=== PATIENT | female | born 1950 | race Hispanic/Latino ===

== ENCOUNTER 2016-12-31 10:14 | Inpatient (IN) | payer OTHER ==
[2016-12-31] MEDS ORDERED: Sodium Chloride 0.9% 1,000 ML IV STA (10:41)
--- NOTE | 2016-12-31 10:50 | ED PDOC ---
HPI: Chest Pain Time Seen by Provider: 12/31/16 10:28 Chief Complaint (Nursing): Palpitations Chief Complaint (Provider): Palpitations History Per: Patient History/Exam Limitations: no limitations Additional Complaint(s): Patient is a 66 year old female, with a past medical history of A fibrillation and hypothyroidism, presenting to the ED for palpitations that has been constant and ongoing since 4 hours ago. Patient denies chest pain, shortness of breath, fever, leg pain, and swelling. Of note, patient takes metoprolol and aspirin. She has no other complaints at this time. PCP: none provided. Past Medical History Reviewed: Historical Data, Nursing Documentation, Vital Signs Vital Signs: Last Vital Signs Temp 98.2 F 12/31/16 14:38 Pulse 52 L 12/31/16 14:38 Resp 17 12/31/16 14:38 BP 130/64 12/31/16 14:38 Pulse Ox 98 12/31/16 14:38 - Medical History PMH: Atrial Fibrillation, Hypothyroidism - Family History Family History: States: Unknown Family Hx - Social History Current smoker - smoking cessation education provided: No Alcohol: None - Home Medications Home Medications: Ambulatory Orders Medication Instructions Recorded Aspirin [Aspirin EC] 325 mg PO HS 12/31/16 Atorvastatin [Lipitor] 5 mg PO WM 12/31/16 Calcium Carbonate [Calcium] 600 mg PO BID 12/31/16 Levothyroxine [Synthroid] 100 mcg PO DAILY 12/31/16 Metoprolol Tartrate [Lopressor] 50 mg PO DAILY 12/31/16 - Allergies Allergies/Adverse Reactions: Allergies Allergy/AdvReac Type Severity Reaction Status Date / Time levothyroxine Allergy RASH Verified 12/31/16 10:36 JOSE Risk Score for UA/NSTEMI - JOSE Risk Score Age > 64: NO 3 or more CAD Risk Factors: NO Known CAD (Stenosis greater than 50%): NO Aspirin use in past 7 days: YES Severe Angina: NO EKG ST changes greater than 0.5mm: NO Positive Cardiac Marker: NO JOSE Score: 1 Risk %: 5% Review of Systems ROS Statement: Except As Marked, All Systems Reviewed And Found Negative Constitutional: Negative for: Fever Cardiovascular: Positive for: Palpitations. Negative for: Chest Pain, Edema Respiratory: Negative for: Shortness of Breath Musculoskeletal: Positive for: Other (-leg pain, swelling) Physical Exam - Reviewed Nursing Documentation Reviewed: Yes Vital Signs Reviewed: Yes - Physical Exam Appears: Positive for: Well, Non-toxic, No Acute Distress Head Exam: Positive for: ATRAUMATIC, NORMAL INSPECTION, NORMOCEPHALIC Skin: Positive for: Normal Color, Warm, Dry Eye Exam: Positive for: Normal appearance Neck: Positive for: Normal, Supple Cardiovascular/Chest: Positive for: Tachycardia, Irregularly Irregular Respiratory: Positive for: Normal Breath Sounds. Negative for: Respiratory Distress Extremity: Positive for: Normal ROM. Negative for: Pedal Edema, Calf Tenderness Neurologic/Psych: Positive for: Alert, Oriented - Laboratory Results Result Diagrams: 12/31/16 11:02 12/31/16 11:02 - ECG ECG: Positive for: Interpreted By Me, Viewed By Me Interpretation Of ECG: First: A Fib at 124 bpm. T wave inversion V3-V6 Second: post cardizem, A Fib at 84 bpm, nonspecific ST changes. O2 Sat by Pulse Oximetry: 97 (RA) Pulse Ox Interpretation: Normal - Radiology X-Ray: Read By Radiologist (Mild biapical pleural thickening.) - Critical Care Total Time (In Min): 35 Documented Critical Care: Time excludes all time spent performint seperately billable procedures Medical Decision Making Medical Decision Making: Initial Impression: A Fib with RVR Initial Plan: * EKG * Labs * CXR * Diltiazem 20 mg IV * NS 1 L, 100 mls/hr * Reevaluation 1335 Repeat EKG: NSR; sinus jakub with rate 53; T-wave inversion V3, V4 13:[address] Cuenca (covering for patient's private Retail Agent Dr. Lim), agrees with admission for repeat troponin. Scribe Attestation: Documented by Fe Maher training under Charito Estrada, acting as a scribe for Justina Trevino MD. Provider Attestation: All medical record entries made by the Scribe were at my direction and personally dictated by me. I have reviewed the chart and agree that the record accurately reflects my personal performance of the history, physical exam, medical decision making, and the department course for this patient. I have also personally directed, reviewed, and agree with the discharge instructions and disposition. Disposition - Clinical Impression Clinical Impression: Atrial fibrillation with RVR - Patient ED Disposition Is Patient to be Admitted: Yes - Disposition Disposition Time: 13:55 Condition: STABLE - Pt Status Changed To: Hospital Disposition Of: Inpatient - Admit Certification Admit to Inpatient:: After my assessment, the patient will require hospitalization for at least two midnights. This is because of the severity of symptoms shown, intensity of services needed, and/or the medical risk in this patient being treated as an outpatient. - POA Present On Arrival: None
[2016-12-31 11:07] LABS: BASO % 0.5 % (0.0-2.0); EOS # 0.1 K/uL (0.0-0.7); EOS % 1.6 % (0.0-4.0); LYMPH # 1.6 K/uL (1.0-4.3); LYMPH % 22.1 % (20.0-40.0); MEAN CELL VOLUME 89.1 fl (81.0-99.0); MEAN CORPUSCULAR HEMOGLOBIN 30.1 pg (27.0-31.0); MEAN CORPUSCULAR HGB CONC 33.8 g/dL (33.0-37.0); MEAN PLATELET VOLUME 10.4 fl (7.2-11.7); MONO # 0.3 K/uL (0.0-0.8); MONO % 4.9 % (0.0-10.0); NEUT % 70.9 % (50.0-75.0); NRBC % 0.1 % (0.0-0.0); RED CELL DISTRIBUTION WIDTH 13.2 % (11.5-14.5); WHITE BLOOD COUNT 7.1 K/uL (4.8-10.8)
[2016-12-31 11:15] LABS: ALB/GLOB RATIO 1.3 (1.0-2.1); ALBUMIN 4.4 g/dL (3.5-5.0); ALT/SGPT 30 U/L (9-52); AST/SGOT 23 U/L (14-36); BLOOD UREA NITROGEN 21 mg/dl (7-17); CALCIUM 9.4 mg/dL (8.4-10.2); GFR AFRICAN-AMERICAN > 60; GFR NON-AFRICAN AMERICAN 56
--- NOTE | 2016-12-31 11:46 | RAD ---
HISTORY: Palpitations COMPARISON: None available. TECHNIQUE: Chest, one view. FINDINGS: Examination limited by habitus. LUNGS: Mild biapical pleural thickening. No focal consolidation. Please note that chest x-ray has limited sensitivity for the detection of pulmonary masses. PLEURA: No significant pleural effusion identified. No definite pneumothorax . CARDIOVASCULAR: Heart size appears within normal limits. OSSEOUS STRUCTURES: No acute osseous abnormality identified. VISUALIZED UPPER ABDOMEN: Unremarkable. OTHER FINDINGS: None. IMPRESSION: Mild biapical pleural thickening.
[2016-12-31 11:52] LABS: PARTIAL THROMBOPLASTIN TIME 31.6 Seconds (25.6-37.1); PROTHROMBIN TIME 10.8 Seconds (9.8-13.1)
[2016-12-31 12:51] VITALS: BMI 26.6
[2016-12-31 17:06] LABS: HDL CHOLESTEROL 41 MG/DL (30-70)
[2016-12-31 17:17] LABS: LDL CHOLESTEROL 103 mg/dL (0-129)
[2016-12-31] MEDS ORDERED: Aspirin 325 mg EC Tablets PO SCH (22:00)
[2016-12-31 23:51] VITALS: TEMP 97.8
[2017-01-01 05:11] VITALS: O2SAT 99
[2017-01-01 08:06] VITALS: BP 112/68; RESP 18
[2017-01-01 08:34] VITALS: PULSE 52
--- NOTE | 2017-01-01 08:44 | CARD ---
APPROVED REPORT EKG Measurement Heart [id number] <Conclusion> Sinus bradycardia T wave abnormality, consider anterior ischemia Abnormal ECG
--- NOTE | 2017-01-01 08:45 | CARD ---
APPROVED REPORT EKG Measurement Heart [id number] <Conclusion> Atrial fibrillation Nonspecific T wave abnormality Abnormal ECG
[2017-01-01] MEDS ORDERED: Metoprolol Succinate 50 mg XL Tab PO SCH (09:00)
[2017-01-01] MEDS ORDERED: Enoxaparin 40 mg Syringe SC SCH (09:00)
[2017-01-01] MEDS ORDERED: Levothyroxine 100 MCG TAB PO SCH (09:00)
--- NOTE | 2017-01-01 09:42 | CP.PCM.HP ---
History of Present Illness - History of Present Illness History of Present Illness: 66 YR OLD FEMALE ADMITTED VIA THE ER BECAUSE OF PALPITATIONS X 4 HRS PRIOR TO ADMISSION. SHE DENIES CHEST PAINS BUT ADMITS TO DIZZINESS.SHE WAS FOUND TO BE IN ATRIAL FIB WITH RVR AND WAS GIVEN IV CARDIZEM AND CONVERTED TO SINUS BRADYCARDIA.FEELS BETTER TODAY. HX OF HYPOTHYROIDISM AND ATRIAL FIBRILLATION Present on Admission - Present on Admission Any Indicators Present on Admission: No History of DVT/PE: No History of Uncontrolled Diabetes: No Urinary Catheter: No Decubitus Ulcer Present: No History Surgical Site Infection Following: None Past Patient History - Past Medical History & Family History Past Medical History?: Yes - Past Social History Smoking Status: Never Smoked - CARDIAC Hx Cardiac Disorders: Yes Hx Atrial Fibrillation: Yes - PULMONARY Hx Respiratory Disorders: No - NEUROLOGICAL Hx Neurological Disorder: No - HEENT Hx HEENT Problems: No - RENAL Hx Chronic Kidney Disease: No - ENDOCRINE/METABOLIC Hx Endocrine Disorders: Yes Hx Hypothyroidism: Yes - HEMATOLOGICAL/ONCOLOGICAL Hx Blood Disorders: No Hx AIDS: No Hx Human Immunodeficiency Virus (HIV): No - INTEGUMENTARY Hx Dermatological Problems: No - MUSCULOSKELETAL/RHEUMATOLOGICAL Hx Musculoskeletal Disorders: No Hx Falls: No - GASTROINTESTINAL Hx Gastrointestinal Disorders: No - GENITOURINARY/GYNECOLOGICAL Hx Genitourinary Disorders: No - PSYCHIATRIC Hx Psychophysiologic Disorder: No Hx Substance Use: No - SURGICAL HISTORY Hx Surgeries: Yes Hx Section: Yes Other/Comment: Vocal cords x 2. Bartholin's - ANESTHESIA Hx Anesthesia: Yes Hx Anesthesia Reactions: No Hx Malignant Hyperthermia: No Has any member of the family had a problem w/ anesthesia?: No Meds Allergies/Adverse Reactions: Allergies Allergy/AdvReac Type Severity Reaction Status Date / Time levothyroxine Allergy RASH Verified 12/31/16 10:36 Physical Exam - Constitutional Appears: No Acute Distress - Head Exam Head Exam: ATRAUMATIC, NORMAL INSPECTION, NORMOCEPHALIC - Eye Exam Eye Exam: EOMI, Normal appearance, PERRL Pupil Exam: NORMAL ACCOMODATION, PERRL - ENT Exam ENT Exam: Mucous Membranes Moist, Normal Exam - Neck Exam Neck exam: Positive for: Normal Inspection - Respiratory Exam Respiratory Exam: Clear to Auscultation Bilateral, NORMAL BREATHING PATTERN - Cardiovascular Exam Cardiovascular Exam: REGULAR RHYTHM - GI/Abdominal Exam GI & Abdominal Exam: Normal Bowel Sounds, Soft. absent: Tenderness - Rectal Exam Rectal Exam: NORMAL INSPECTION - Extremities Exam Extremities exam: Positive for: normal inspection - Back Exam Back exam: NORMAL INSPECTION - Neurological Exam Neurological exam: Alert, CN II-XII Intact, Normal Gait, Oriented x3, Reflexes Normal - Psychiatric Exam Psychiatric exam: Normal Affect, Normal Mood - Skin Skin Exam: Dry, Intact, Normal Color, Warm Results - Vital Signs Recent Vital Signs: Last Vital Signs Temp 97.8 F 01/01/17 08:06 Pulse 52 L 01/01/17 08:33 Resp 18 01/01/17 08:06 BP 112/68 01/01/17 08:33 Pulse Ox 99 01/01/17 08:06 - Labs Result Diagrams: 12/31/16 11:02 12/31/16 11:02 Labs: Laboratory Results - last 24 hr 12/31/16 12/31/16 01/01/17 16:45 17:57 05:30 Troponin I < 0.0120 < 0.0120 Triglycerides 123 Cholesterol 172 LDL Cholesterol Direct 103 HDL Cholesterol 41 Assessment & Plan - Assessment and Plan (Free Text) Assessment: PALPITATIONS-RESOLVED ATRIAL FIBRILLATION--CONTROLLED VENT RESPONSE[SINUS CORRINE] HYPOTHYROIDISM Plan: AWAIT CARDIAC EVALUATION WILL DISCHARGE ONCE CLEARED BY CARDIOLOGY PT TO FOLLOWUP WITH HER PRIVATE FOURTH MATE - Date & Time Date: 01/01/17 Time: 09:48
--- NOTE | 2017-01-01 10:11 | CP.PCM.DIS ---
Provider - Provider Date of Admission: 12/31/16 13:55 Attending physician: Abdias Capellan MD Time Spent in preparation of Discharge (in minutes): 30 Diagnosis - Discharge Diagnosis (1) Hypothyroidism Status: Acute (2) Bradycardia Status: Acute (3) Atrial fibrillation with RVR Status: Acute Hospital Course - Lab Results Lab Results: Most Recent Lab Values WBC 7.1 K/uL (4.8-10.8) 12/31/16 11:02 RBC 5.00 Mil/uL (3.80-5.20) 12/31/16 11:02 Hgb 15.0 g/dL (12.0-16.0) 12/31/16 11:02 Hct 44.5 % (34.0-47.0) 12/31/16 11:02 MCV 89.1 fl (81.0-99.0) 12/31/16 11:02 MCH 30.1 pg (27.0-31.0) 12/31/16 11:02 MCHC 33.8 g/dL (33.0-37.0) 12/31/16 11:02 RDW 13.2 % (11.5-14.5) 12/31/16 11:02 Plt Count 188 K/uL (130-400) 12/31/16 11:02 MPV 10.4 fl (7.2-11.7) 12/31/16 11:02 Neut % (Auto) 70.9 % (50.0-75.0) 12/31/16 11:02 Lymph % (Auto) 22.1 % (20.0-40.0) 12/31/16 11:02 [place] % (Auto) 4.9 % (0.0-10.0) 12/31/16 11:02 Eos % (Auto) 1.6 % (0.0-4.0) 12/31/16 11:02 Baso % (Auto) 0.5 % (0.0-2.0) 12/31/16 11:02 Neut # 5.0 K/uL (1.8-7.0) 12/31/16 11:02 Lymph # 1.6 K/uL (1.0-4.3) 12/31/16 11:02 [place] # 0.3 K/uL (0.0-0.8) 12/31/16 11:02 Eos # 0.1 K/uL (0.0-0.7) 12/31/16 11:02 Baso # 0.0 K/uL (0.0-0.2) 12/31/16 11:02 PT 10.8 Seconds (9.8-13.1) 12/31/16 11:02 INR 1.0 (0.9-1.2) 12/31/16 11:02 APTT 31.6 Seconds (25.6-37.1) 12/31/16 11:02 D-Dimer, Quantitative 137 ng/mlDDU (0-230) 12/31/16 11:45 Sodium 146 mmol/l (132-148) 12/31/16 11:02 Potassium 4.4 MMOL/L (3.6-5.0) 12/31/16 11:02 Chloride 110 mmol/L (98-107) H 12/31/16 11:02 Carbon Dioxide 27 mmol/L (22-30) 12/31/16 11:02 Anion Gap 13 (10-20) 12/31/16 11:02 BUN 21 mg/dl (7-17) H 12/31/16 11:02 Creatinine 1.0 mg/dL (0.7-1.2) 12/31/16 11:02 Est GFR ( Amer) > 60 12/31/16 11:02 Est GFR (Non-Af Amer) 56 12/31/16 11:02 Random Glucose 101 mg/dL (65-105) 12/31/16 11:02 Calcium 9.4 mg/dL (8.4-10.2) 12/31/16 11:02 Total Bilirubin 0.4 mg/dl (0.2-1.3) 12/31/16 11:02 AST 23 U/L (14-36) 12/31/16 11:02 ALT 30 U/L (9-52) 12/31/16 11:02 Alkaline Phosphatase 73 U/L (38-126) 12/31/16 11:02 Troponin I < 0.0120 ng/mL (0.00-0.120) 01/01/17 05:30 Total Protein 7.7 G/DL (6.3-8.2) 12/31/16 11:02 Albumin 4.4 g/dL (3.5-5.0) 12/31/16 11:02 Globulin 3.3 gm/dL (2.2-3.9) 12/31/16 11:02 Albumin/Globulin Ratio 1.3 (1.0-2.1) 12/31/16 11:02 Triglycerides 123 mg/DL (0-149) 12/31/16 16:45 Cholesterol 172 mg/dL (0-199) 12/31/16 16:45 LDL Cholesterol Direct 103 mg/dL (0-129) 12/31/16 16:45 HDL Cholesterol 41 MG/DL (30-70) 12/31/16 16:45 TSH 3rd Generation 1.78 mIU/ML (0.46-4.68) 12/31/16 11:02 - Hospital Course Hospital Course: CHEST PAIN FREE EKG-SINUS CORRINE CARDIAC ENZYMES NEGATIVE Discharge Exam - Head Exam Head Exam: ATRAUMATIC, NORMAL INSPECTION, NORMOCEPHALIC - Eye Exam Eye Exam: EOMI, Normal appearance, PERRL Pupil Exam: NORMAL ACCOMODATION, PERRL - Cardiovascular Exam Cardiovascular Exam: Bradycardia Additional comments: HR-56/M - GI/Abdominal Exam GI & Abdominal Exam: Normal Bowel Sounds - Rectal Exam Rectal Exam: NORMAL INSPECTION - Neurological Exam Neurological exam: Alert, CN II-XII Intact, Normal Gait, Oriented x3, Reflexes Normal - Psychiatric Exam Psychiatric exam: Normal Affect, Normal Mood - Skin Skin Exam: Dry, Intact, Normal Color, Warm Discharge Plan - Follow Up Plan Condition: STABLE Disposition: HOME/ ROUTINE Patient education suggested?: Yes Additional Instructions: DISCHARGE HOME TODAY OUTPT CARDIAC FOLLOWUP
--- NOTE | 2017-01-01 10:22 | CP.PCM.CON ---
History of Present Illness - History of Present Illness History of Present Illness: This 66-year-old female who has a history of recurring palpitations which are caused by transient atrial fibrillation for last 5-6 years. She has a long history of hypothyroidism and has been taking thyroid supplement for more than 30 years. She is not a smoker or diabetic and has never experienced any chest pain or myocardial infarction or symptoms of congestive cardiac failure. She denies drinking alcohol in excess. She has a family history of heart disease in that her father and required a pacemaker. During bouts of atrial fibrillation the patient does not have symptoms of congestive cardiac failure or lightheadedness or fainting. She has no history of pedal edema. She has been advised by her physician to take aspirin every day. On examination this is a middle aged pleasant female who is sitting up in a chair carrying on a conversation with her daughter. She is alert awake weren't afebrile. Her respiratory rate was 14 breaths per minute and her heart rate was 58 bpm(she has been taking 50 mg of metoprolol every day.) Her blood pressure was 122/70 mmHg. Her jugular venous pressure was not elevated there was no edema over her lower extremities the pedal pulses were well felt there were no carotid bruits. Extremities are warm nailbeds were pink there was no central or peripheral cyanosis. [place] was in the fifth space the first and second heart sound are normal there was no murmur or gallop no rales her abdomen was soft liver and spleen are not palpable thyroid and breast did not reveal anything abnormal. Her electrocardiogram at admission showed evidence of atrial fibrillation with rapid heart rate. Her second electro-cardiogram shows return to sinus rhythm with a normal EKG pattern. Her lab data was noted. Her TSH level was normal. IMPRESSION: Recurrent transient atrial fibrillation. Hypothyroidism. At this point the patient is euthyroid. I have explained to the patient that when she is 67 years old she should consult with her senior program analyst about the appropriateness of taking oral anticoagulation. In the meantime the patient may be allowed to return home taking one aspirin every day. Past Patient History - Past Medical History & Family History Past Medical History?: Yes - Past Social History Smoking Status: Never Smoked - CARDIAC Hx Cardiac Disorders: Yes Hx Atrial Fibrillation: Yes - PULMONARY Hx Respiratory Disorders: No - NEUROLOGICAL Hx Neurological Disorder: No - HEENT Hx HEENT Problems: No - RENAL Hx Chronic Kidney Disease: No - ENDOCRINE/METABOLIC Hx Endocrine Disorders: Yes Hx Hypothyroidism: Yes - HEMATOLOGICAL/ONCOLOGICAL Hx Blood Disorders: No Hx AIDS: No Hx Human Immunodeficiency Virus (HIV): No - INTEGUMENTARY Hx Dermatological Problems: No - MUSCULOSKELETAL/RHEUMATOLOGICAL Hx Musculoskeletal Disorders: No Hx Falls: No - GASTROINTESTINAL Hx Gastrointestinal Disorders: No - GENITOURINARY/GYNECOLOGICAL Hx Genitourinary Disorders: No - PSYCHIATRIC Hx Psychophysiologic Disorder: No Hx Substance Use: No - SURGICAL HISTORY Hx Surgeries: Yes Hx Section: Yes Other/Comment: Vocal cords x 2. Bartholin's - ANESTHESIA Hx Anesthesia: Yes Hx Anesthesia Reactions: No Hx Malignant Hyperthermia: No Has any member of the family had a problem w/ anesthesia?: No Meds Allergies/Adverse Reactions: Allergies Allergy/AdvReac Type Severity Reaction Status Date / Time levothyroxine Allergy RASH Verified 12/31/16 10:36 - Medications Medications: Current Medications Aspirin (Ecotrin) 325 mg PO HS [facility] Last Admin: 12/31/16 21:18 Dose: Not Given Atorvastatin Calcium (Lipitor) 5 mg PO MON [facility] Atorvastatin Calcium (Lipitor) 5 mg PO WED [facility] Calcium Carbonate (Oscal) 500 mg PO BIDWM [facility] Last Admin: 01/01/17 08:31 Dose: 500 mg Enoxaparin Sodium (Lovenox) 40 mg SC DAILY [facility] PRN Reason: Protocol Last Admin: 01/01/17 08:31 Dose: 40 mg Home Med (Patient's Own Medication) 100 unit PO DAILY [facility] Metoprolol Succinate (Toprol Xl) 50 mg PO DAILY [facility] Last Admin: 01/01/17 08:33 Dose: Not Given Results - Vital Signs Recent Vital Signs: Last Vital Signs Temp 97.8 F 01/01/17 08:06 Pulse 52 L 01/01/17 08:33 Resp 18 01/01/17 08:06 BP 112/68 01/01/17 08:33 Pulse Ox 99 01/01/17 08:06 - Labs Result Diagrams: 12/31/16 11:02 12/31/16 11:02 Labs: Laboratory Results - last 24 hr 12/31/16 12/31/16 01/01/17 16:45 17:57 05:30 Troponin I < 0.0120 < 0.0120 Triglycerides 123 Cholesterol 172 LDL Cholesterol Direct 103 HDL Cholesterol 41
--- NOTE | 2017-01-06 08:28 | CARD ---
APPROVED REPORT EKG Measurement Heart [id number] <Conclusion> Atrial fibrillation with rapid ventricular response ST & T wave abnormality, consider anterolateral ischemia Abnormal ECG
== END 2017-01-01 11:23 | disposition home or self-care (01) | DRG 310 ==
LOC: H.ER 10:14 → H.ERHOLD 13:55 → H.TEL 15:17
PROVIDERS: ADMIT Internal Medicine Pulmonary Disease; ATTEND Internal Medicine Pulmonary Disease
DX: I48.91 Unspecified atrial fibrillation (principal); E03.9 Hypothyroidism, unspecified; Z79.82 Long term (current) use of aspirin; Z79.899 Other long term (current) drug therapy; R00.1 Bradycardia, unspecified; R00.2 Palpitations; R07.9 Chest pain, unspecified; R42 Dizziness and giddiness